=== PATIENT | male | born 1965 | race Caucasian/White ===

== ENCOUNTER 2016-12-21 03:21 | Emergency (ER) | payer OTHER ==
[~2016-12-21] VITALS: Ht 185.4 cm; Wt 93.0 kg
[2016-12-21] MEDS ORDERED: LORazepam 2 MG/ML, 1ML ONE (03:28)
[2016-12-21] MEDS ORDERED: SODIUM CHLORIDE 0.9% 1,000ML IVBOLUS ONE (03:30)
[2016-12-21] MEDS ORDERED: LEVETIRACETAM 1,000 MG in SODIUM CHLORIDE 0.9% 100 ML IV ONE (03:30)
[2016-12-21] MEDS ORDERED: LORazepam 2 MG/ML, 1ML IVPush PRN (03:30)
[2016-12-21] MEDS ORDERED: KEPPRA (03:52)
[2016-12-21 04:03] LABS: BLOOD UREA NITROGEN 6 mg/dL (7-18)
[2016-12-21 05:39] VITALS: BP 141/83
== END 2016-12-21 05:43 | disposition home or self-care (01) ==
LOC: ED 05:15
DX: G40.909 Epilepsy, unspecified, not intractable, without status epilepticus (principal); F10.20 Alcohol dependence, uncomplicated
CPT/HCPCS: 36415; 80048; 82040; 85025; 96365; 96366; 96375; 99285; J1953; J2060; J7030

== ENCOUNTER 2019-04-08 22:29 | Inpatient (IN) | payer MEDICAID, OTHER ==
[~2019-04-08] VITALS: Ht 185.4 cm; Wt 84.5 kg
[~2019-04-08 22:29] MED LIST: KEPPRA
[2019-04-08] MEDS ORDERED: LOSA1TAB25 PO (22:48)
[2019-04-08] MEDS ORDERED: LEVE500T53 PO (22:48)
[2019-04-08] MEDS ORDERED: THIAMINE 100MG TABLET PO ONE (23:00)
[2019-04-08] MEDS ORDERED: ONDANSETRON 2MG/ML, 2ML IVPush ONE (23:00)
[2019-04-08] MEDS ORDERED: SODIUM CHLORIDE 0.9% 1,000ML IVBOLUS ONE (23:00)
[2019-04-08] MEDS ORDERED: PLEASE ENTER ALLERGIES MC SCH (23:00)
[2019-04-08] MEDS ORDERED: SODIUM CHLORIDE FLUSH 10ML SYR IVF ONE (23:00)
[2019-04-08] MEDS ORDERED: LORazepam 2 MG/ML, 1ML IVPush PRN (23:00)
[2019-04-08 23:02] LABS: BASOPHILS % (AUTO) 0 % (0-1); EOSINOPHILS # (AUTO) 0.07 x10^3/uL (0-0.4); EOSINOPHILS % (AUTO) 1 % (1-7); LYMPHOCYTES # (AUTO) 0.64 x10^3/uL (1-3.4); LYMPHOCYTES % (AUTO) 8 % (22-44); MD NO; MEAN CORPUSCULAR HEMOGLOBIN 35.9 pg (27.5-34.5); MEAN CORPUSCULAR HGB CONC 33.7 g/dL (33.2-36.2); MEAN CORPUSCULAR VOLUME 106.4 fL (81-97); MEAN PLATELET VOLUME 7.8 fL (7.4-10.4); MONOCYTES # (AUTO) 0.59 x10^3/uL (0.2-0.8); MONOCYTES % (AUTO) 7 % (2-9); NEUTROPHILS # (AUTO) 6.65 x10^3/uL (1.8-6.8); NEUTROPHILS % (AUTO) 84 % (42-75); PLATELET COUNT 115 x10^3/uL (130-400); RED BLOOD COUNT 4.37 x10^6/uL (4.38-5.82)
[2019-04-08] MEDS ORDERED: ONDANSETRON 2MG/ML, 2ML ONE (23:06)
[2019-04-08] MEDS ORDERED: LORazepam 2 MG/ML, 1ML ONE (23:07)
[2019-04-08 23:12] LABS: ALANINE AMINOTRANSFERASE 100 U/L (12-78); ANION GAP 19 mmol/L (5-15); CALCIUM 8.4 mg/dL (8.5-10.1); CHLORIDE 87 mmol/L (98-107); CREATININE 1.33 mg/dL (0.7-1.3)
[2019-04-08 23:14] LABS: ALKALINE PHOSPHATASE 70 U/L (45-117); TOTAL PROTEIN 7.4 g/dL (6.4-8.2)
[2019-04-08] MEDS ORDERED: NEOSPORIN OINT. PKT 1 PACKET ONE ×2 (23:35→23:56)
[2019-04-09] VITALS (7 sets, daily range): BP systolic 123–189; BP diastolic 78–95
[2019-04-09] MEDS ORDERED: MAGNESIUM SULFATE 1 GM, THIAMINE 100 MG, FOLIC ACID 1 MG, MVI ADULT 10 ML in SODIUM CHL... IV ONE
--- NOTE | 2019-04-09 00:32 | NUR ---
BANANA BAG REQUESTED FROM PHARMACY
[2019-04-09] MEDS ORDERED: THIAMINE 100MG TABLET ONE (00:36)
[2019-04-09] MEDS ORDERED: SODIUM CHLORIDE 0.9% 1,000 ML IV SCH (01:14)
[2019-04-09] MEDS ORDERED: CHLORDIAZEPOXIDE 25 MG CAPSULE PO PRN ×3 (01:30)
[2019-04-09] MEDS ORDERED: LABETALOL 5MG/ML, 20ML IVPush PRN (01:30)
[2019-04-09] MEDS ORDERED: PROMETHAZINE 25 MG/ML, 1ML IM PRN (01:30)
[2019-04-09] MEDS ORDERED: CHLORDIAZEPOXIDE 10 MG CAPSULE PO PRN (01:30)
[2019-04-09] MEDS ORDERED: ONDANSETRON 2MG/ML, 2ML IVPush PRN (01:30)
[2019-04-09] MEDS: HEPARIN 5,000 UNITS/ML, 1ML SQ SCH ×3 (02:21→16:29)
[2019-04-09] MEDS: CHLORDIAZEPOXIDE 25 MG CAPSULE PO SCH ×5 (02:21→21:26)
[2019-04-09] MEDS ORDERED: hydrALAzine 20 MG/ML, 1ML ONE (04:45)
[2019-04-09] MEDS ORDERED: hydrALAzine 20 MG/ML, 1ML IV PRN (05:00)
[2019-04-09 05:55] LABS: AMPHETAMINE SCREEN, URINE Negative (Negative); BARBITURATE SCREEN, URINE Negative (Negative); BENZODIAZEPINE SCREEN, URINE Negative (Negative); CANNABINOID SCREEN, URINE Negative (Negative); COCAINE SCREEN, URINE Negative (Negative); METHADONE SCREEN, URINE Negative (Negative); OPIATE SCREEN, URINE Negative (Negative)
[2019-04-09 06:17] LABS: ACETONE, SERUM Small (20mg/dL) mg/dL (Negative)
[2019-04-09 07:47] LABS: MEAN CORPUSCULAR HEMOGLOBIN 35.3 pg (27.5-34.5); MEAN CORPUSCULAR HGB CONC 34.2 g/dL (33.2-36.2); MEAN CORPUSCULAR VOLUME 103.2 fL (81-97); MEAN PLATELET VOLUME 8.3 fL (7.4-10.4); PLATELET COUNT 108 x10^3/uL (130-400); RED BLOOD COUNT 4.38 x10^6/uL (4.38-5.82); RED CELL DISTRIBUTION WIDTH 13.8 % (9.4-14.8)
[2019-04-09 07:50] LABS: ALANINE AMINOTRANSFERASE 97 U/L (12-78); ALBUMIN 3.9 g/dL (3.4-5.0); ANION GAP 12 mmol/L (5-15); CALCIUM 8.3 mg/dL (8.5-10.1); CHLORIDE 98 mmol/L (98-107)
[2019-04-09 07:52] LABS: ALKALINE PHOSPHATASE 62 U/L (45-117); BILIRUBIN,TOTAL 1.7 mg/dL (0.2-1.0)
[2019-04-09 08:19] LABS: BASOPHILS # (AUTO) 0.02 x10^3/uL (0-0.1); BASOPHILS % (AUTO) 0 % (0-1); EOSINOPHILS # (AUTO) 0.05 x10^3/uL (0-0.4); EOSINOPHILS % (AUTO) 1 % (1-7); LYMPHOCYTES # (AUTO) 1.36 x10^3/uL (1-3.4); LYMPHOCYTES % (AUTO) 16 % (22-44); MD SCAN; MONOCYTES # (AUTO) 0.85 x10^3/uL (0.2-0.8); MONOCYTES % (AUTO) 10 % (2-9); NEUTROPHILS # (AUTO) 6.14 x10^3/uL (1.8-6.8); NEUTROPHILS % (AUTO) 73 % (42-75)
[2019-04-09] MEDS ORDERED: LORazepam 0.5MG TABLET PO PRN (09:00)
[2019-04-09] MEDS ORDERED: TEMPLATE NON-FORMULARY MED. (Losartan/Hydrochlorothiazide** (Losartan-Hctz 100-12.5 Mg Tab PO SCH (09:00)
[2019-04-09] MEDS ORDERED: LORazepam 1MG TABLET PO PRN ×4 (09:00)
[2019-04-09] MEDS ORDERED: LORazepam 2 MG/ML, 1ML IV PRN ×5 (09:00)
[2019-04-09] MEDS: LEVETIRACETAM 500 MG TABLET PO SCH ×2 (09:14→21:26)
[2019-04-09] MEDS: LACTATED RINGERS 1,000 ML IV SCH ×2 (09:16→19:00)
[2019-04-09] MEDS: LIDODERM 5% PATCH TD SCH (16:28)
[2019-04-09] MEDS: POTASSIUM CHLORIDE 20 MEQ, MAGNESIUM SULFATE 2 GM, THIAMINE 200 MG, MVI ADULT 10 ML, FO... IV SCH (21:26)
[2019-04-10 00:12] VITALS: BP 136/91
[2019-04-10] MEDS: HEPARIN 5,000 UNITS/ML, 1ML SQ SCH ×3 (02:06→18:14)
[2019-04-10] MEDS: LIDODERM REMOVE PATCH NOTE XX SCH (04:00)
[2019-04-10] MEDS: POTASSIUM CHLORIDE 20 MEQ, MAGNESIUM SULFATE 2 GM, THIAMINE 200 MG, MVI ADULT 10 ML, FO... IV SCH ×2 (06:16→18:14)
[2019-04-10 06:25] LABS: MEAN PLATELET VOLUME 8.2 fL (7.4-10.4); PLATELET COUNT 85 x10^3/uL (130-400); RED CELL DISTRIBUTION WIDTH 14.2 % (9.4-14.8)
[2019-04-10 06:36] LABS: ALANINE AMINOTRANSFERASE 65 U/L (12-78); ALBUMIN 3.3 g/dL (3.4-5.0); ANION GAP 7 mmol/L (5-15); CALCIUM 8.1 mg/dL (8.5-10.1); CHLORIDE 105 mmol/L (98-107); CREATININE 0.86 mg/dL (0.7-1.3)
[2019-04-10 06:38] VITALS: BP 145/75
[2019-04-10 06:38] LABS: ALKALINE PHOSPHATASE 84 U/L (45-117); BILIRUBIN,TOTAL 0.7 mg/dL (0.2-1.0); TOTAL PROTEIN 6.1 g/dL (6.4-8.2)
[2019-04-10 06:45] LABS: BASOPHILS # (AUTO) 0.02 x10^3/uL (0-0.1); BASOPHILS % (AUTO) 0 % (0-1); EOSINOPHILS # (AUTO) 0.07 x10^3/uL (0-0.4); EOSINOPHILS % (AUTO) 2 % (1-7); LYMPHOCYTES # (AUTO) 1.24 x10^3/uL (1-3.4); LYMPHOCYTES % (AUTO) 28 % (22-44); MD SCAN; MONOCYTES % (AUTO) 14 % (2-9); NEUTROPHILS # (AUTO) 2.51 x10^3/uL (1.8-6.8); NEUTROPHILS % (AUTO) 57 % (42-75)
[2019-04-10] MEDS: LEVETIRACETAM 500 MG TABLET PO SCH ×2 (08:31→20:08)
[2019-04-10] MEDS: CHLORDIAZEPOXIDE 25 MG CAPSULE PO SCH ×3 (08:31→20:08)
[2019-04-10] MEDS: LACTATED RINGERS 1,000 ML IV SCH (08:32)
[2019-04-10 12:12] VITALS: BP 156/100
[2019-04-10] MEDS ORDERED: FLU VACC QS2019-20 36MOS UP/PF 0.5 ML IM-VACC ONE (16:30)
[2019-04-10] MEDS: LIDODERM 5% PATCH TD SCH (16:39)
[2019-04-10 19:28] VITALS: BP 153/97
[2019-04-11 00:20] VITALS: BP 148/91
[2019-04-11] MEDS: HEPARIN 5,000 UNITS/ML, 1ML SQ SCH ×3 (01:32→17:10)
[2019-04-11] MEDS: POTASSIUM CHLORIDE 20 MEQ, MAGNESIUM SULFATE 2 GM, THIAMINE 200 MG, MVI ADULT 10 ML, FO... IV SCH (02:48)
[2019-04-11] MEDS: LIDODERM REMOVE PATCH NOTE XX SCH (04:00)
[2019-04-11] MEDS: LACTATED RINGERS 1,000 ML IV SCH (04:12)
[2019-04-11 06:07] LABS: MEAN CORPUSCULAR HEMOGLOBIN 35.4 pg (27.5-34.5); MEAN CORPUSCULAR HGB CONC 33.9 g/dL (33.2-36.2); MEAN CORPUSCULAR VOLUME 104.4 fL (81-97); MEAN PLATELET VOLUME 7.9 fL (7.4-10.4); PLATELET COUNT 94 x10^3/uL (130-400); RED BLOOD COUNT 3.85 x10^6/uL (4.38-5.82); RED CELL DISTRIBUTION WIDTH 13.9 % (9.4-14.8)
[2019-04-11 06:13] LABS: ALBUMIN 4.1 g/dL (3.4-5.0); ANION GAP 9 mmol/L (5-15); CALCIUM 8.6 mg/dL (8.5-10.1); CHLORIDE 100 mmol/L (98-107)
[2019-04-11 06:17] LABS: ALANINE AMINOTRANSFERASE 70 U/L (12-78); ALKALINE PHOSPHATASE 84 U/L (45-117); BILIRUBIN,TOTAL 0.8 mg/dL (0.2-1.0); CREATININE 0.79 mg/dL (0.7-1.3); TOTAL PROTEIN 7.4 g/dL (6.4-8.2)
[2019-04-11 06:38] LABS: BASOPHILS # (AUTO) 0.02 x10^3/uL (0-0.1); BASOPHILS % (AUTO) 0 % (0-1); EOSINOPHILS # (AUTO) 0.08 x10^3/uL (0-0.4); EOSINOPHILS % (AUTO) 2 % (1-7); LYMPHOCYTES # (AUTO) 1.35 x10^3/uL (1-3.4); LYMPHOCYTES % (AUTO) 27 % (22-44); MD SCAN; MONOCYTES # (AUTO) 0.71 x10^3/uL (0.2-0.8); MONOCYTES % (AUTO) 14 % (2-9); NEUTROPHILS # (AUTO) 2.76 x10^3/uL (1.8-6.8); NEUTROPHILS % (AUTO) 56 % (42-75)
[2019-04-11] MEDS ORDERED: CHLORDIAZEPOXIDE 25 MG CAPSULE PO SCH ×2 (09:00)
[2019-04-11 09:16] VITALS: BP 163/101
[2019-04-11] MEDS: HYDROCHLOROTHIAZIDE 12.5 MG CAPSULE PO SCH (09:56)
[2019-04-11] MEDS: LEVETIRACETAM 500 MG TABLET PO SCH ×2 (09:56→20:30)
[2019-04-11] MEDS ORDERED: LOSA50TA14 PO (10:12)
[2019-04-11] MEDS ORDERED: HYDR12.575 PO (10:12)
[2019-04-11] MEDS: LOSARTAN 50MG TABLET PO SCH (10:19)
[2019-04-11 14:00] VITALS: BP 163/115
[2019-04-11] MEDS: LIDODERM 5% PATCH TD SCH (14:56)
[2019-04-11 16:14] VITALS: BP 146/93
[2019-04-11 16:41] VITALS: BP 166/111
[2019-04-11] MEDS ORDERED: AMLODIPINE 2.5 MG TABLET PO SCH (17:30)
[2019-04-11 18:31] VITALS: BP 144/99
[2019-04-12] MEDS: LIDODERM REMOVE PATCH NOTE XX SCH (00:22)
[2019-04-12] MEDS: HEPARIN 5,000 UNITS/ML, 1ML SQ SCH ×2 (00:22→09:30)
[2019-04-12 00:26] VITALS: BP 155/103
[2019-04-12 01:57] VITALS: BP 146/99
[2019-04-12 02:00] VITALS: BP 142/93
[2019-04-12] MEDS ORDERED: AMLO2.5T5 PO ×3 (07:18→07:40)
[2019-04-12] MEDS ORDERED: LOSA50TA2 PO (07:18)
[2019-04-12] MEDS ORDERED: THIA100T67 PO (07:19)
[2019-04-12] MEDS: LOSARTAN 50MG TABLET PO SCH (08:00)
[2019-04-12] MEDS: LEVETIRACETAM 500 MG TABLET PO SCH (08:00)
[2019-04-12] MEDS: HYDROCHLOROTHIAZIDE 12.5 MG CAPSULE PO SCH (08:00)
[2019-04-12 08:05] VITALS: BP 135/94
[2019-04-12] MEDS ORDERED: AMLODIPINE 5 MG TABLET PO SCH (09:00)
[2019-04-13] MEDS ORDERED: FLUDROCORTISONE 0.1 MG TABLET PO SCH (09:00)
== END 2019-04-12 11:05 | disposition home or self-care (01) | DRG 100 ==
LOC: ED 23:11 → EDIP 23:57 → 4WST 04-09 01:03 → DCLOUNGE 04-12 10:41
PROVIDERS: ADMIT Family Medicine; ATTEND Hospitalist
DX: G40.509 Epileptic seizures related to external causes, not intractable, without status epilepticus (principal); N17.0 Acute kidney failure with tubular necrosis; E87.1 Hypo-osmolality and hyponatremia; E87.2 Acidosis; E86.0 Dehydration; E87.6 Hypokalemia; F17.210 Nicotine dependence, cigarettes, uncomplicated; R73.9 Hyperglycemia, unspecified; R74.0 Nonspecific elevation of levels of transaminase and lactic acid dehydrogenase [LDH]; I10 Essential (primary) hypertension; Z82.49 Family history of ischemic heart disease and other diseases of the circulatory system; Z79.899 Other long term (current) drug therapy; Z23 Encounter for immunization
CPT/HCPCS: 36415; 73030; 96361; 96374; 96375; 99291; J7042; 70450; 80053; 80074; 80307; 82010; 82550; 82962; 83605; 83690; 83735; 84100; 84443; 85025; 90686; 93005; G0378; J1644; J2405; J3411; J3475; J3480; J0360; J2060; J7030; J7120

== ENCOUNTER 2019-06-29 13:05 | Inpatient (IN) | payer MEDICAID ==
[~2019-06-29] VITALS: Ht 185.4 cm; Wt 96.4 kg
[~2019-06-29 13:05] MED LIST changes: +AMLO2.5T5 PO; +HYDR12.575 PO; +LEVE500T53 PO; +LOSA1TAB25 PO; +LOSA50TA14 PO; +LOSA50TA2 PO; +THIA100T67 PO
--- NOTE | 2019-06-29 13:13 | NUR ---
THIS IS A 52 YO M W/ C/O N/V AND TREMORS AFTER STOPPING ALCOHOL USE 3 DAYS AGO. PT STATES HE DRANK 10-12 BEERS/DAILY. VOMITTED 50 ML FOR REMSA. 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 PT STATES HE HAD A SEIZURE TODAY AND TOOK KEPPRA. RESP EVEN AND UNLABORED. NADN. CALL LIGHT IN REACH. PT RESTING ON GURNEY AWAITING ED EVAL. DENIES FURTHER NEEDS AT THIS TIME.
--- NOTE | 2019-06-29 13:37 | NUR ---
PT PROVIDED URINAL FOR UA.
--- NOTE | 2019-06-29 13:43 | NUR ---
URINE COLLECTED AND SENT. LAB IN ROOM.
[2019-06-29 13:52] LABS: MEAN CORPUSCULAR HEMOGLOBIN 34.8 pg (27.5-34.5); MEAN CORPUSCULAR HGB CONC 34.5 g/dL (33.2-36.2); MEAN CORPUSCULAR VOLUME 100.8 fL (81-97); MEAN PLATELET VOLUME 7.4 fL (7.4-10.4); PLATELET COUNT 102 x10^3/uL (130-400); RED BLOOD COUNT 4.32 x10^6/uL (4.38-5.82); RED CELL DISTRIBUTION WIDTH 14.7 % (9.4-14.8)
[2019-06-29 13:53] LABS: MICROSCOPIC AUTO
[2019-06-29 14:02] LABS: AMPHETAMINE SCREEN, URINE Negative (Negative); BARBITURATE SCREEN, URINE Negative (Negative); BENZODIAZEPINE SCREEN, URINE Negative (Negative); CANNABINOID SCREEN, URINE Negative (Negative); COCAINE SCREEN, URINE Negative (Negative); METHADONE SCREEN, URINE Negative (Negative); OPIATE SCREEN, URINE Negative (Negative)
[2019-06-29 14:06] LABS: ALANINE AMINOTRANSFERASE 28 U/L (12-78); ANION GAP 15 mmol/L (5-15); CALCIUM 8.2 mg/dL (8.5-10.1); CHLORIDE 90 mmol/L (98-107); CREATININE 1.09 mg/dL (0.7-1.3); SALICYLATE LEVEL < 1.7 mg/dL (2.8-20.0)
[2019-06-29 14:11] LABS: ALKALINE PHOSPHATASE 59 U/L (45-117); BILIRUBIN,TOTAL 1.2 mg/dL (0.2-1.0); TOTAL PROTEIN 7.1 g/dL (6.4-8.2); TROPONIN I < 0.015 ng/mL (0.000-0.045)
[2019-06-29 14:13] LABS: BASOPHILS % (AUTO) 0 % (0-1); EOSINOPHILS % (AUTO) 0 % (1-7); LYMPHOCYTES # (AUTO) 0.26 x10^3/uL (1-3.4); LYMPHOCYTES % (AUTO) 2 % (22-44); MD SCAN; MONOCYTES # (AUTO) 0.63 x10^3/uL (0.2-0.8); MONOCYTES % (AUTO) 4 % (2-9); NEUTROPHILS # (AUTO) 15.08 x10^3/uL (1.8-6.8); NEUTROPHILS % (AUTO) 94 % (42-75)
--- NOTE | 2019-06-29 14:28 | NUR ---
PT TO CT.
[2019-06-29] MEDS ORDERED: ONDANSETRON 2MG/ML, 2ML ONE (14:32)
[2019-06-29] MEDS ORDERED: SODIUM CHLORIDE 0.9% 1,000 ML IV ONE (14:34)
--- NOTE | 2019-06-29 14:35 | NUR ---
PT REQ ZOFRAN BEFORE CT. PROVIDER NOTIFIED. ORDERED 4MG ZOFRAN IV. GIVEN AT THIS TIME. PT TO CT.
[2019-06-29 14:39] LABS: CULTURE INDICATED? YES
[2019-06-29] MEDS ORDERED: LORazepam 2 MG/ML, 1ML ONE (14:45)
[2019-06-29] MEDS ORDERED: CEFTRIAXONE PMX 1GM/50ML 50 ML ONE (14:51)
[2019-06-29] MEDS ORDERED: LORazepam 2 MG/ML, 1ML IVPush ONE (15:00)
[2019-06-29] MEDS ORDERED: CEFTRIAXONE PMX 1GM/50ML 50 ML IVPB ONE (15:00)
[2019-06-29] MEDS ORDERED: ONDANSETRON 2MG/ML, 2ML IVPush ONE (15:00)
[2019-06-29] MEDS ORDERED: SODIUM CHLORIDE FLUSH 10ML SYR IVF ONE (15:00)
--- NOTE | 2019-06-29 15:12 | NUR ---
LAB IN ROOM DRAWING CULTURES.
--- NOTE | 2019-06-29 15:18 | NUR ---
MED DUSTIN FROM PHARMACY
[2019-06-29] MEDS ORDERED: POTASSIUM CHLORIDE 20 MEQ, MVI ADULT 10 ML, FOLIC ACID 1 MG, MAGNESIUM SULFATE 1 GM in ... IV ONE (15:30)
[2019-06-29] MEDS ORDERED: morphine SULFATE 10 MG/ML, 1ML IVPush PRN (15:30)
[2019-06-29] MEDS ORDERED: LORazepam 2 MG/ML, 1ML IV PRN ×3 (15:30)
[2019-06-29] MEDS ORDERED: ENOXAPARIN 40 MG/0.4 ML ONE (15:35)
[2019-06-29] MEDS: ENOXAPARIN 40 MG/0.4 ML SQ SCH (15:37)
[2019-06-29] MEDS: SODIUM CHLORIDE 0.9% 1,000 ML IV SCH ×2 (15:47→22:27)
--- NOTE | 2019-06-29 15:47 | NUR ---
PT MEDICATED PER EMAR. 1L NS INFUSING AT 150ML/HR PER ADMITTING PROVIDER ORDER.
[2019-06-29 17:47] VITALS: BP 170/101
[2019-06-29] MEDS: ONDANSETRON 2MG/ML, 2ML IVPush PRN ×2 (18:15→22:27)
[2019-06-29 20:13] VITALS: BP 157/97
[2019-06-29] MEDS: LORazepam 2 MG/ML, 1ML IV PRN ×2 (20:26→22:27)
[2019-06-29] MEDS: LEVETIRACETAM 500 MG TABLET PO SCH (20:26)
[2019-06-30] VITALS (7 sets, daily range): BP systolic 143–165; BP diastolic 93–110
[2019-06-30] MEDS: LORazepam 2 MG/ML, 1ML IV PRN ×5 (01:15→12:12)
[2019-06-30] MEDS ORDERED: CEFTRIAXONE PMX 1GM/50ML 50 ML IV SCH (03:00)
[2019-06-30] MEDS: ONDANSETRON 2MG/ML, 2ML IVPush PRN (03:03)
[2019-06-30] MEDS: SODIUM CHLORIDE 0.9% 1,000 ML IV SCH ×3 (05:19→15:54)
[2019-06-30 05:55] LABS: ALBUMIN 2.6 g/dL (3.4-5.0); ANION GAP 9 mmol/L (5-15); CALCIUM 8.1 mg/dL (8.5-10.1); CHLORIDE 96 mmol/L (98-107)
[2019-06-30] MEDS: ACETAMINOPHEN 325 MG TABLET PO PRN (05:57)
[2019-06-30 06:00] LABS: ALANINE AMINOTRANSFERASE 23 U/L (12-78); ALKALINE PHOSPHATASE 58 U/L (45-117); BILIRUBIN,TOTAL 0.7 mg/dL (0.2-1.0); CREATININE 1.19 mg/dL (0.7-1.3); TOTAL PROTEIN 6.6 g/dL (6.4-8.2)
[2019-06-30 06:03] LABS: MEAN CORPUSCULAR HGB CONC 34.6 g/dL (33.2-36.2); MEAN CORPUSCULAR VOLUME 101.4 fL (81-97); RED BLOOD COUNT 4.08 x10^6/uL (4.38-5.82); RED CELL DISTRIBUTION WIDTH 14.8 % (9.4-14.8)
[2019-06-30 06:43] LABS: MD YES
[2019-06-30 06:45] LABS: BAND#(MANUAL) 2.18 x10^3/uL; BANDS%(MANUAL) 18 % (0-7); LYMPH#(MANUAL) 0.73 x10^3/uL (1-3.4); LYMPHS% (MANUAL) 6 % (22-44); MONOS#(MANUAL) 0.85 x10^3/uL (0.3-2.7); MONOS% (MANUAL) 7 % (2-9); SEG#(MANUAL) 8.35 x10^3/uL (1.8-6.8); SEGS% (MANUAL) 69 % (42-75)
[2019-06-30 06:46] LABS: <PLT MORPHOLOGY> NORMAL PLT MORPH; <RBC MORPHOLOGY> NORMAL; MEAN PLATELET VOLUME 8.5 fL (7.4-10.4); PLATELET COUNT 80 x10^3/uL (130-400)
[2019-06-30 06:47] LABS: <PLATELET ESTIMATE> DECREASED
[2019-06-30] MEDS: FOLIC ACID 1 MG TABLET PO SCH (08:17)
[2019-06-30] MEDS: LEVETIRACETAM 500 MG TABLET PO SCH ×2 (08:17→20:29)
[2019-06-30] MEDS: PANTOPRAZOLE 40 MG IV IVPush SCH (08:17)
[2019-06-30] MEDS: MULTIVITAMINS/MINERALS TABLET PO SCH (08:17)
[2019-06-30] MEDS ORDERED: THIAMINE 100MG TABLET PO SCH (09:00)
[2019-06-30] MEDS ORDERED: LOSARTAN 100 MG TAB PO SCH (09:00)
[2019-06-30] MEDS: CHLORDIAZEPOXIDE 25 MG CAPSULE PO SCH ×3 (11:46→20:29)
[2019-06-30] MEDS: CEFTRIAXONE PMX 2GM/50ML 50 ML IV SCH (15:28)
[2019-06-30] MEDS: AMLODIPINE 5 MG TABLET PO SCH (15:28)
[2019-06-30] MEDS: ENOXAPARIN 40 MG/0.4 ML SQ SCH (15:28)
[2019-07-01] MEDS: SODIUM CHLORIDE 0.9% 1,000 ML IV SCH ×4 (00:20→20:18)
[2019-07-01] MEDS: LORazepam 2 MG/ML, 1ML IV PRN ×3 (00:20→04:02)
[2019-07-01 00:21] VITALS: BP 161/96
[2019-07-01] MEDS: ACETAMINOPHEN 325 MG TABLET PO PRN (00:31)
[2019-07-01] MEDS: CHLORDIAZEPOXIDE 25 MG CAPSULE PO SCH ×3 (06:16→21:00)
[2019-07-01 07:20] LABS: MEAN CORPUSCULAR HEMOGLOBIN 34.5 pg (27.5-34.5); MEAN CORPUSCULAR HGB CONC 33.7 g/dL (33.2-36.2); MEAN CORPUSCULAR VOLUME 102.6 fL (81-97); MEAN PLATELET VOLUME 7.8 fL (7.4-10.4); PLATELET COUNT 82 x10^3/uL (130-400); RED BLOOD COUNT 4.03 x10^6/uL (4.38-5.82); RED CELL DISTRIBUTION WIDTH 14.7 % (9.4-14.8)
[2019-07-01 07:21] LABS: ANION GAP 10 mmol/L (5-15); CALCIUM 8.2 mg/dL (8.5-10.1); CHLORIDE 100 mmol/L (98-107); CREATININE 1.41 mg/dL (0.7-1.3)
[2019-07-01 07:27] VITALS: BP 155/110
[2019-07-01 07:40] LABS: MD YES
[2019-07-01 07:43] LABS: BAND#(MANUAL) 1.23 x10^3/uL; BANDS%(MANUAL) 15 % (0-7); LYMPH#(MANUAL) 1.07 x10^3/uL (1-3.4); LYMPHS% (MANUAL) 13 % (22-44); METAMYELOCYTES# (MANUAL) 0.08 x10^3/uL (0-0); METAMYELOCYTES% (MANUAL) 1 % (0-1); MONOS#(MANUAL) 0.41 x10^3/uL (0.3-2.7); MONOS% (MANUAL) 5 % (2-9); MYELOCYTES# (MANUAL) 0.08 x10^3/uL (0-0); MYELOCYTES% (MANUAL) 1 % (0-0); SEG#(MANUAL) 5.33 x10^3/uL (1.8-6.8); SEGS% (MANUAL) 65 % (42-75)
[2019-07-01 07:44] LABS: <PLATELET ESTIMATE> DECREASED; <PLT MORPHOLOGY> NORMAL PLT MORPH; ANISOCYTOSIS 1+; PMNS WITH VACUOLES 1+
[2019-07-01] MEDS ORDERED: SODIUM CHLORIDE 0.9% 1,000ML IVBOLUS ONE (08:00)
[2019-07-01] MEDS ORDERED: POTASSIUM CHLORIDE 20 MEQ TAB.ER.PRT PO ONE (08:00)
[2019-07-01] MEDS ORDERED: SODIUM PHOSPHATE 30 MMOL in SODIUM CHLORIDE 0.9% 500 ML IV ONE (08:00)
[2019-07-01] MEDS ORDERED: LABETALOL 5MG/ML, 20ML IVPush PRN (08:00)
[2019-07-01] MEDS: METOPROLOL TARTRATE 50 MG TABLET PO SCH ×2 (08:50→18:45)
[2019-07-01] MEDS: LEVETIRACETAM 500 MG TABLET PO SCH ×2 (08:50→20:18)
[2019-07-01] MEDS: MULTIVITAMINS/MINERALS TABLET PO SCH (08:50)
[2019-07-01] MEDS: AMLODIPINE 5 MG TABLET PO SCH (08:51)
[2019-07-01] MEDS: THIAMINE 100MG TABLET PO SCH (08:51)
[2019-07-01] MEDS: FOLIC ACID 1 MG TABLET PO SCH (08:51)
[2019-07-01] MEDS: PANTOPRAZOLE 40 MG IV IVPush SCH (08:51)
[2019-07-01 12:36] VITALS: BP 158/95
[2019-07-01] MEDS: ENOXAPARIN 40 MG/0.4 ML SQ SCH (16:05)
[2019-07-01] MEDS: CEFTRIAXONE PMX 2GM/50ML 50 ML IV SCH (16:05)
[2019-07-01 18:40] VITALS: BP 137/92
[2019-07-01 19:53] VITALS: BP 147/97
[2019-07-02 01:42] VITALS: BP 142/90
[2019-07-02] MEDS: SODIUM CHLORIDE 0.9% 1,000 ML IV SCH (04:03)
[2019-07-02 05:30] VITALS: BP 150/96
[2019-07-02] MEDS: METOPROLOL TARTRATE 50 MG TABLET PO SCH ×2 (05:30→17:40)
[2019-07-02] MEDS: PANTOPROZOLE 40MG TABLET PO SCH (05:30)
[2019-07-02 05:48] LABS: CHLORIDE 101 mmol/L (98-107)
[2019-07-02 05:53] LABS: ANION GAP 9 mmol/L (5-15); CALCIUM 8.1 mg/dL (8.5-10.1); CREATININE 1.15 mg/dL (0.7-1.3)
[2019-07-02] MEDS ORDERED: SODIUM PHOSPHATE 30 MMOL in SODIUM CHLORIDE 0.9% 500 ML IV ONE (07:30)
[2019-07-02] MEDS ORDERED: POTASSIUM CHLORIDE 20 MEQ TAB.ER.PRT PO ONE (07:30)
[2019-07-02 08:13] VITALS: BP 148/93
[2019-07-02] MEDS: LOSARTAN 100 MG TAB PO SCH (08:36)
[2019-07-02] MEDS: LEVETIRACETAM 500 MG TABLET PO SCH ×2 (08:36→19:47)
[2019-07-02] MEDS: NEUTRA PHOS K 250 MG TABLET PO SCH ×3 (08:36→19:46)
[2019-07-02] MEDS: THIAMINE 100MG TABLET PO SCH (08:36)
[2019-07-02] MEDS: AMLODIPINE 5 MG TABLET PO SCH (08:37)
[2019-07-02] MEDS: MULTIVITAMINS/MINERALS TABLET PO SCH (08:37)
[2019-07-02] MEDS: FOLIC ACID 1 MG TABLET PO SCH (08:37)
[2019-07-02 13:29] VITALS: BP 145/98
[2019-07-02] MEDS ORDERED: SODIUM CHLORIDE 0.9% 1,000 ML IV SCH (15:05)
[2019-07-02] MEDS: CEFTRIAXONE PMX 2GM/50ML 50 ML IV SCH (15:17)
[2019-07-02] MEDS: ENOXAPARIN 40 MG/0.4 ML SQ SCH (15:17)
[2019-07-02 20:07] VITALS: BP 137/92
[2019-07-03 02:03] VITALS: BP 148/92
[2019-07-03] MEDS: ACETAMINOPHEN 325 MG TABLET PO PRN ×3 (04:42→23:45)
[2019-07-03 05:18] VITALS: BP 151/94
[2019-07-03] MEDS: METOPROLOL TARTRATE 50 MG TABLET PO SCH ×2 (05:22→18:24)
[2019-07-03] MEDS: PANTOPROZOLE 40MG TABLET PO SCH (05:22)
[2019-07-03 06:20] LABS: ANION GAP 11 mmol/L (5-15); CALCIUM 8.2 mg/dL (8.5-10.1); CHLORIDE 103 mmol/L (98-107)
[2019-07-03 06:35] VITALS: BP 148/79
[2019-07-03] MEDS ORDERED: POTASSIUM CHLORIDE 20 MEQ TAB.ER.PRT PO ONE (07:00)
[2019-07-03] MEDS: LOSARTAN 100 MG TAB PO SCH (08:16)
[2019-07-03] MEDS: FOLIC ACID 1 MG TABLET PO SCH (08:16)
[2019-07-03] MEDS: THIAMINE 100MG TABLET PO SCH (08:16)
[2019-07-03] MEDS: METHOCARBAMOL 750 MG TABLET PO SCH ×3 (08:16→19:58)
[2019-07-03] MEDS: AMLODIPINE 5 MG TABLET PO SCH (08:16)
[2019-07-03] MEDS: MULTIVITAMINS/MINERALS TABLET PO SCH (08:16)
[2019-07-03] MEDS: LEVETIRACETAM 500 MG TABLET PO SCH ×2 (08:16→19:58)
[2019-07-03 14:00] VITALS: BP 148/79
[2019-07-03] MEDS: ENOXAPARIN 40 MG/0.4 ML SQ SCH (15:55)
[2019-07-03] MEDS: CEFTRIAXONE PMX 2GM/50ML 50 ML IV SCH (15:56)
[2019-07-03 19:25] VITALS: BP 142/94
[2019-07-04] VITALS (7 sets, daily range): BP systolic 127–169; BP diastolic 84–102
[2019-07-04] MEDS: PANTOPROZOLE 40MG TABLET PO SCH (05:44)
[2019-07-04] MEDS: METOPROLOL TARTRATE 50 MG TABLET PO SCH ×2 (05:44→17:57)
[2019-07-04 06:48] LABS: ANION GAP 9 mmol/L (5-15); CALCIUM 8.7 mg/dL (8.5-10.1); CHLORIDE 102 mmol/L (98-107); CREATININE 1.21 mg/dL (0.7-1.3)
[2019-07-04 06:53] LABS: BASOPHILS # (AUTO) 0.01 x10^3/uL (0-0.1); BASOPHILS % (AUTO) 0 % (0-1); EOSINOPHILS # (AUTO) 0.12 x10^3/uL (0-0.4); EOSINOPHILS % (AUTO) 2 % (1-7); LYMPHOCYTES % (AUTO) 28 % (22-44); MD NO; MEAN CORPUSCULAR HEMOGLOBIN 34.9 pg (27.5-34.5); MEAN CORPUSCULAR VOLUME 102.7 fL (81-97); MEAN PLATELET VOLUME 7.8 fL (7.4-10.4); MONOCYTES # (AUTO) 1.02 x10^3/uL (0.2-0.8); MONOCYTES % (AUTO) 19 % (2-9); NEUTROPHILS % (AUTO) 51 % (42-75); PLATELET COUNT 185 x10^3/uL (130-400); RED BLOOD COUNT 3.94 x10^6/uL (4.38-5.82); RED CELL DISTRIBUTION WIDTH 14.9 % (9.4-14.8)
[2019-07-04] MEDS ORDERED: POTASSIUM CHLORIDE 20 MEQ TAB.ER.PRT PO ONE (08:00)
[2019-07-04] MEDS: METHOCARBAMOL 750 MG TABLET PO SCH ×3 (10:19→22:13)
[2019-07-04] MEDS: THIAMINE 100MG TABLET PO SCH (10:19)
[2019-07-04] MEDS: LOSARTAN 100 MG TAB PO SCH (10:19)
[2019-07-04] MEDS: FOLIC ACID 1 MG TABLET PO SCH (10:19)
[2019-07-04] MEDS: MULTIVITAMINS/MINERALS TABLET PO SCH (10:19)
[2019-07-04] MEDS: AMLODIPINE 5 MG TABLET PO SCH (10:20)
[2019-07-04] MEDS: LEVETIRACETAM 500 MG TABLET PO SCH ×2 (10:23→20:40)
[2019-07-04] MEDS: CEFTRIAXONE PMX 2GM/50ML 50 ML IV SCH (15:15)
[2019-07-04] MEDS: ENOXAPARIN 40 MG/0.4 ML SQ SCH (15:21)
[2019-07-05 00:42] VITALS: BP 152/90
[2019-07-05] MEDS: METOPROLOL TARTRATE 50 MG TABLET PO SCH (05:05)
[2019-07-05] MEDS: PANTOPROZOLE 40MG TABLET PO SCH (05:05)
[2019-07-05 05:55] LABS: CHLORIDE 102 mmol/L (98-107)
[2019-07-05 06:06] LABS: ANION GAP 7 mmol/L (5-15); CALCIUM 8.7 mg/dL (8.5-10.1); CREATININE 0.99 mg/dL (0.7-1.3)
[2019-07-05] MEDS ORDERED: POTASSIUM CHLORIDE 20 MEQ TAB.ER.PRT PO ONE (06:30)
[2019-07-05 07:25] VITALS: BP 144/95
[2019-07-05] MEDS ORDERED: METO50TA82 PO (07:33)
[2019-07-05] MEDS ORDERED: CIPR500T87 PO (07:33)
[2019-07-05] MEDS ORDERED: AMLO-150 PO (07:33)
[2019-07-05] MEDS: THIAMINE 100MG TABLET PO SCH (08:30)
[2019-07-05] MEDS: AMLODIPINE 5 MG TABLET PO SCH (08:30)
[2019-07-05] MEDS: METHOCARBAMOL 750 MG TABLET PO SCH (08:30)
[2019-07-05] MEDS: LOSARTAN 100 MG TAB PO SCH (08:30)
[2019-07-05] MEDS: LEVETIRACETAM 500 MG TABLET PO SCH (08:30)
[2019-07-05] MEDS: MULTIVITAMINS/MINERALS TABLET PO SCH (08:30)
[2019-07-05] MEDS: FOLIC ACID 1 MG TABLET PO SCH (08:30)
== END 2019-07-05 10:35 | disposition home or self-care (01) | DRG 872 ==
LOC: ED 13:25 → EDIP 15:02 → 4EST 17:35 → DCLOUNGE 07-05 10:15
PROVIDERS: ADMIT Internal Medicine Infectious Disease; ATTEND Hospitalist
DX: A41.51 Sepsis due to Escherichia coli [E. coli] (principal); E87.1 Hypo-osmolality and hyponatremia; E87.2 Acidosis; N12 Tubulo-interstitial nephritis, not specified as acute or chronic; N17.9 Acute kidney failure, unspecified; D75.89 Other specified diseases of blood and blood-forming organs; E83.39 Other disorders of phosphorus metabolism; E87.6 Hypokalemia; F17.200 Nicotine dependence, unspecified, uncomplicated; I10 Essential (primary) hypertension; F41.1 Generalized anxiety disorder; R56.9 Unspecified convulsions; R65.20 Severe sepsis without septic shock; Z78.1 Physical restraint status; Z79.899 Other long term (current) drug therapy
CPT/HCPCS: 36415; 84145; 96361; 96374; 96375; 99285; J7042; 70450; 71045; 80048; 80053; 80307; 81001; 82140; 83605; 83735; 84100; 84295; 84484; 85025; 87040; 87077; 87086; 87186; 93005; G0378; J0696; J1650; J2405; J3475; J3480; C9113; J2060; J2270; J7030; J7040

== ENCOUNTER 2020-02-10 19:14 | Emergency (ER) | payer MEDICAID ==
[~2020-02-10] VITALS: Ht 185.4 cm; Wt 95.5 kg
[~2020-02-10 19:14] MED LIST changes: +AMLO-150 PO; +CIPR500T87 PO; +METO50TA82 PO
--- NOTE | 2020-02-10 19:20 | NUR ---
PT BIB EMS. PT HAD MULTIPLE FALLS, PT HAS BEEN DRINKING AND HAD ABOUT 10-12 BEERS AND FELL MULTIPLE TIMES OUTSIDE HIS HOUSE AND HIT HIS HEAD, BILATERAL LEGS, AND CHIPPED HIS FRONT TOOTH. PT'S HEAD AND LEFT LEG WRAPPED UP BY EMS. PT STATES NO LOC, CMS INTACT WITH BILATER LOWER EXTREMITIES, NO SLURRED SPEECH, AND STATES MILD PAIN IN HEAD. PATIENT PLACED ON MONTIORS, PUT IN GOWN, AND ERP AT BEDSIDE FOR EVAL.
[2020-02-10] MEDS ORDERED: DIPH,PERTUSS(ACELL),TET VAC/PF 0.5 ML IM-VACC ONE ×2 (19:30→19:34)
[2020-02-10] MEDS ORDERED: LIDOCAINE-MPF 1%, 5ML INFIL ONE (19:30)
[2020-02-10] MEDS ORDERED: LIDOCAINE-MPF 1%, 2ML ONE (19:33)
--- NOTE | 2020-02-10 20:01 | NUR ---
PATIENT MEDICATED PER EMAR, AND EMT AT BEDSIDE CLEANSING LEG WOUNDS AT THIS TIME
[2020-02-10] MEDS ORDERED: NEOSPORIN OINT. PKT 1 PACKET ONE (20:02)
[2020-02-10 23:29] VITALS: BP 102/64
== END 2020-02-11 00:03 | disposition home or self-care (01) ==
LOC: ED 20:08
DX: S01.81XA Laceration without foreign body of other part of head, initial encounter (principal); S50.812A Abrasion of left forearm, initial encounter; S80.812A Abrasion, left lower leg, initial encounter; S09.90XA Unspecified injury of head, initial encounter; M54.2 Cervicalgia; F10.220 Alcohol dependence with intoxication, uncomplicated; G40.909 Epilepsy, unspecified, not intractable, without status epilepticus; W01.0XXA Fall on same level from slipping, tripping and stumbling without subsequent striking against object, initial encounter; Y93.89 Activity, other specified; Y92.009 Unspecified place in unspecified non-institutional (private) residence as the place of occurrence of the external cause; Y99.8 Other external cause status; Y90.9 Presence of alcohol in blood, level not specified
CPT/HCPCS: 12052; 70450; 72125; 90471; 90715; 99285

== ENCOUNTER 2020-04-09 13:52 | Emergency (ER) | payer MEDICAID ==
[~2020-04-09] VITALS: Ht 185.4 cm; Wt 94.2 kg
[2020-04-09 14:22] LABS: BASOPHILS % (AUTO) 1 % (0-1); EOSINOPHILS % (AUTO) 0 % (1-7); LYMPHOCYTES % (AUTO) 36 % (22-44); MEAN CORPUSCULAR HEMOGLOBIN 34.5 pg (27.5-34.5); MEAN CORPUSCULAR HGB CONC 34.2 g/dL (33.2-36.2); MEAN PLATELET VOLUME 7.6 fL (7.4-10.4); MONOCYTES % (AUTO) 11 % (2-9); NEUTROPHILS % (AUTO) 52 % (42-75); PLATELET COUNT 162 x10^3/uL (130-400); RED BLOOD COUNT 4.65 x10^6/uL (4.38-5.82); RED CELL DISTRIBUTION WIDTH 15.1 % (9.4-14.8)
[2020-04-09 14:23] LABS: MD NO
[2020-04-09 14:33] LABS: ALBUMIN 4.2 g/dL (3.4-5.0); ANION GAP 9 mmol/L (5-15); CALCIUM 8.3 mg/dL (8.5-10.1); CHLORIDE 99 mmol/L (98-107)
[2020-04-09 14:40] LABS: ALANINE AMINOTRANSFERASE 177 U/L (12-78); ALKALINE PHOSPHATASE 134 U/L (45-117); CREATININE 0.89 mg/dL (0.7-1.3); TOTAL PROTEIN 7.9 g/dL (6.4-8.2)
[2020-04-09 16:36] VITALS: BP 111/67
[2020-04-09 17:18] LABS: MICROSCOPIC NOT IND
== END 2020-04-09 17:27 | disposition home or self-care (01) ==
LOC: ED 17:00
DX: F10.229 Alcohol dependence with intoxication, unspecified (principal); R56.9 Unspecified convulsions; R51.9 Headache, unspecified; Y90.0 Blood alcohol level of less than 20 mg/100 ml
CPT/HCPCS: 36415; 70450; 80053; 80307; 81003; 85025; 99284